=== PATIENT | female | born 1980 | race Caucasian/White ===

== ENCOUNTER → 2018-01-06 | Outpatient (CLI) | payer OTHER ==
[~2018-01-06] MED LIST: CYANOCOBAL1000 MCG/M IM; DICYCLOMINE HCL20 MG PO; ESTROGEL50 GM; FERRALET 90 DU1 EACH PO; HYDROXYZINE HCL25 MG PO; LIBRAX CAPSULE1 EACH PO; LORAZEPAM1 MG PO; NYSTATIN-TRIAMC15 G1; PANTOPRAZOLE SO40 MG PO; SIMPONI50 MG/0.5 SC; ULTRAM 50MG50 MG PO
--- NOTE | 2018-01-06 14:24 | Diagnostic Imaging Report ---
PROCEDURE: X-RAY BARIUM ENEMA WITH AIR CONTRAST COMPARISON: None. INDICATIONS: CROHN'S TECHNIQUE: English And Reading Instructor film was obtained. Barium was introduced via a rectal tube in a retrograde fashion until contrast was noted to reach the cecum. Air was then introduced to fully inflate the colon. Multiple spot images as well as overhead and bilateral decubitus images were obtained. FINDINGS: The kelp or seagrass gatherer film demonstrates no acute abnormalities. There is no evidence of obstruction, mass or intraluminal filling defects. Stricture of the sigmoid colon with associated nodular thickening of the folds. The appendix is visualized. Fluoroscopy time: 3.3 minutes Total dose: 157.94 mGy CONCLUSION: Stricture of the sigmoid colon Reinaldo Lynn D.O. Dictated by: Reinaldo Lynn D.O. on 01/06/2018 at 14:23 Electronically approved by: Reinaldo Lynn D.O. on 01/06/2018 at 14:23
== END ==
LOC: DX 09:11
PROVIDERS: ATTEND Internal Medicine Gastroenterology
DX: K50.90 Crohn's disease, unspecified, without complications (principal)
CPT/HCPCS: 74280